=== PATIENT | female | born 1985 | race Caucasian/White ===

== ENCOUNTER → 2020-03-21 | Outpatient (CLI) | payer BC ==
[2020-03-21 15:22] LABS: EOS # 0.1 (0.04-0.40); EOS % 2.2 % (1.0-5.0); HEMOGLOBIN 13.5 g/dL (12.5-16.0); LYMPH# 1.4 (1.50-4.00); MEAN CELL VOLUME 94 fl (78-100); MEAN CORPUSCULAR HEMOGLOBIN 32 pg (27-31); MEAN CORPUSCULAR HGB CONC 34 g/dL (33-37); MEAN PLATELET VOLUME 9.6 fl (7.4-10.4); MONO # 0.6 (0.20-0.80); NEU # 3.3 (1.40-6.50); PLATELET COUNT 239 K/mm3 (130-400); RED BLOOD COUNT 4.27 M/mm3 (4.10-5.30); RED CELL DISTRIBUTION WIDTH 11.5 % (11.5-14.5); WHITE BLOOD COUNT 5.4 K/mm3 (4.8-10.8)
[2020-03-21 15:32] LABS: POTASSIUM 3.4 mmol/L (3.5-5.1)
[2020-03-21 15:33] LABS: ALBUMIN 4.4 g/dL (3.5-5.0)
[2020-03-21 15:34] LABS: CALCIUM 9.4 mg/dL (8.3-10.5)
[2020-03-21 15:35] LABS: TOTAL PROTEIN 7.3 g/dL (6.4-8.3)
[2020-03-21 15:37] LABS: TOTAL BILIRUBIN 0.4 mg/dL (0.2-1.2)
[2020-03-22 05:50] LABS: FOLLICLE STIMULATING HORMONE 6.6 mIU/mL (()); PROGESTERONE <0.5 ng/mL (())
[2020-03-27 08:49] LABS: ESTRONE (E1) LEVEL 24 pg/mL (())
== END ==
LOC: LAB 15:12
PROVIDERS: Family Medicine
DX: Z00.00 Encounter for general adult medical examination without abnormal findings (principal); E78.5 Hyperlipidemia, unspecified; N97.0 Female infertility associated with anovulation

== ENCOUNTER → 2020-03-27 | Outpatient (CLI) | payer BC | LOC: RAD 13:00 | DX: N60.02 Solitary cyst of left breast (principal) ==

== ENCOUNTER → 2024-01-23 | Outpatient (CLI) | payer BC ==
[2024-01-23 13:48] LABS: BASO # 0.02 K/mm3 (0.02-0.10); EOS # 0.16 K/mm3 (0.04-0.40); EOS % 2.5 % (1.0-5.0); HEMATOCRIT 40.6 % (37.0-47.0); HEMOGLOBIN 13.3 g/dL (12.5-16.0); LYMPH# 1.74 K/mm3 (1.50-4.00); MEAN CELL VOLUME 95 fl (78-100); MEAN CORPUSCULAR HEMOGLOBIN 31 pg (27-31); MEAN CORPUSCULAR HGB CONC 33 g/dL (33-37); MEAN PLATELET VOLUME 9.2 fl (7.4-10.4); MONO # 0.53 K/mm3 (0.20-0.80); NEU # 3.93 K/mm3 (1.40-6.50); PLATELET COUNT 232 K/mm3 (130-400); RED BLOOD COUNT 4.29 M/mm3 (4.10-5.30); RED CELL DISTRIBUTION WIDTH 12.1 % (11.5-14.5); WHITE BLOOD COUNT 6.4 K/mm3 (4.8-10.8)
[2024-01-23 13:57] LABS: ALBUMIN 4.1 g/dL (3.5-5.0)
[2024-01-23 13:58] LABS: CALCIUM 9.4 mg/dL (8.3-10.5)
[2024-01-23 13:59] LABS: TOTAL PROTEIN 6.9 g/dL (6.4-8.3)
[2024-01-23 14:01] LABS: TOTAL BILIRUBIN 0.3 mg/dL (0.2-1.2)
== END ==
LOC: LAB 13:34
PROVIDERS: Family Medicine
DX: E78.5 Hyperlipidemia, unspecified (principal); I10 Essential (primary) hypertension